=== PATIENT | male | born 1970 | race Caucasian/White ===

== ENCOUNTER 2018-10-07 09:00 | Emergency (ER) | payer OTHER, SELFPAY ==
[2018-10-07 09:01] VITALS: BP 164/95; PULSE 89; RESP 20; TEMP 36.6; O2SAT 100; BMI 27.1
--- NOTE | 2018-10-07 09:24 | RAD_ITS ---
STUDY: X-RAY - LEFT ANKLE REASON FOR EXAM: Male, 48 years old. Pain following injury. TECHNIQUE: 3 view(s) of the ankle. COMPARISON: None. FINDINGS: Normal visualized distal tibia and fibula. Findings suggestive of a nondisplaced avulsion fracture of the medial malleolus. Normal tibiotalar articulation and ankle mortise. Normal visualized talus and calcaneus. The visualized subtalar, talonavicular, calcaneocuboid and tarsal articulations are normal. Diffuse soft tissue swelling RAD/Ankle min 3 Views IMPRESSION: Findings suggestive of a nondisplaced avulsion fracture of the medial malleolus. Diffuse soft tissue swelling. Electronically Signed: Hira Degroot MD at 10:51 EST Tel [phone], Service support ,
--- NOTE | 2018-10-07 09:24 | RAD_ITS ---
STUDY: X-RAY - LEFT FOOT CLINICAL: Male, 48 years old. Pain following injury. TECHNIQUE: 3 view(s) of the foot. COMPARISON: None. FINDINGS: Findings suggest very nondisplaced avulsion fracture of the medial malleolus. Normal talus, calcaneus, and tarsal bones. Normal visualized subtalar, talonavicular, calcaneocuboid, tarsal and tarsometatarsal articulations. Normal metatarsi. Normal metatarsophalangeal joint of the great toe. Normal tibial and fibular sesamoid bones. Normal interphalangeal joint of the great toe. Normal phalanges of the great toe. Normal second through fifth metatarsophalangeal joints. Normal interphalangeal joints and phalanges of the lesser toes. Soft tissue swelling. RAD/Foot min 3 Views IMPRESSION: Soft tissue swelling. Findings suggestive of nondisplaced avulsion fracture of the medial malleolus. Electronically Signed: Hira Degroot MD at 10:56 EST Tel [phone], Service support ,
--- NOTE | 2018-10-07 09:24 | RAD_ITS ---
STUDY: X-RAY - RIGHT FOOT CLINICAL: Male, 48 years old. Pain following injury. TECHNIQUE: 3 view(s) of the foot. COMPARISON: None. FINDINGS: There is a plantar calcaneal spur. Normal visualized subtalar, talonavicular, calcaneocuboid, tarsal and tarsometatarsal articulations. Normal metatarsi. Normal metatarsophalangeal joint of the great toe. Normal tibial and fibular sesamoid bones. Normal interphalangeal joint of the great toe. Normal phalanges of the great toe. Normal second through fifth metatarsophalangeal joints. Normal interphalangeal joints and phalanges of the lesser toes. There is non-specific soft tissue swelling of the foot. RAD/Foot min 3 Views IMPRESSION: Plantar spur. Nonspecific soft tissue swelling. Electronically Signed: Hira Degroot MD at 10:56 EST Tel [phone], Service support ,
--- NOTE | 2018-10-07 09:35 | ED.DCSUM_ITS ---
- ER Visit Summary Date of Service: 10/07/18 Chief Complaint: Bilateral ankle injury History of Present Illness: The patient is a 48 M who was at work today when a large beam of steel came down hitting him in the thigh states it went down his legs. He states it forcibly bent his ankles. He was wearing work boots. He notes bilateral ankle pain and swelling. He notes soreness of the thighs. Physical Examination: Afebrile vital signs are stable Gen: Well-nourished well-developed Head: Normocephalic atraumatic Eyes: Perrl EOMI ENT: TMs clear no rhinorrhea moist mucous membranes Neck: Supple no lymphadenopathy no JVD nontender CVS: Regular rate rhythm no murmurs normal S1-S2 Respiratory: No distress clear to auscultation bilaterally chest nontender Abdomen: Soft nontender nondistended normal bowel sounds no masses Back: Nontender Extremity: There is swelling around the bilateral ankles. Ecchymosis noted. Swelling extends down onto the dorsum of each foot. Painful range of motion. Achilles feels intact. Skin: Normal color no rash bilateral thigh and leg abrasions Neuro: alert orientated ?3 CN II-XII intact normal strength sensation reflexes gait cerebellar Psych: Normal affect normal mood Test Results: Bilateral ankle and foot films were obtained. There appears to be a medial malleolar avulsion fracture on the left. Emergency Department Course and Treatment: Patient states the right ankle actual ly feels pretty good now. He will be placed in air splint on that ankle. The left ankle will be placed in a boot orthosis. He will be given crutches. He will need to follow-up with podiatry. I did speak with Dr. Lopez to facilitate follow-up. Impression: 1. Right ankle sprain 2. Left ankle sprain 3. Left medial malleolar avulsion fracture This note was generated with [employer] dictation software. It may contain incorrect words, spelling, and punctuation that were not noted in review of the chart prior to signing ED Disposition - Plan for ED Patient: Disposition: Home or Assisted Living Chief Complaint: Lower Extremity Injury Instructions: ED Sprain Ankle W X Ray, ED Fx Lower Ext Referrals: Ten Lopez DPM [STAFF PHYSICIAN] - (call to arrange follow up)
--- NOTE | 2018-10-07 09:50 | RAD_ITS ---
STUDY: X-RAY - RIGHT ANKLE REASON FOR EXAM: Male, 48 years old. Pain following injury. TECHNIQUE: 3 view(s) of the ankle. COMPARISON: None. FINDINGS: Normal visualized distal tibia and fibula. Normal medial and lateral malleoli. Normal tibiotalar articulation and ankle mortise. Plantar spur. The visualized subtalar, talonavicular, calcaneocuboid and tarsal articulations are normal. Diffuse soft tissue swelling RAD/Ankle min 3 Views IMPRESSION: Diffuse soft tissue swelling. Plantar spur. Electronically Signed: Hira Degroot MD at 10:54 EST Tel [phone], Service support ,
[2018-10-07 12:29] VITALS: BP 127/79; PULSE 75; RESP 18; O2SAT 99
== END 2018-10-07 12:30 | disposition home or self-care (01) ==
PROVIDERS: Emergency Provider Emergency Medicine; Family Provider Family Medicine; PCP Family Medicine
DX: S82.55XA Nondisplaced fracture of medial malleolus of left tibia, initial encounter for closed fracture (principal); S93.401A Sprain of unspecified ligament of right ankle, initial encounter; S93.402A Sprain of unspecified ligament of left ankle, initial encounter; W31.89XA Contact with other specified machinery, initial encounter; Y93.9 Activity, unspecified; Y92.9 Unspecified place or not applicable; Y99.0 Civilian activity done for income or pay
CPT/HCPCS: 73610; 73630; 99284